=== PATIENT | female | born 1935 | race Caucasian/White ===

== ENCOUNTER 2016-07-08 09:24 | Inpatient (IN) | payer MEDICARE ==
[~2016-07-08] VITALS: Ht 157.5 cm; Wt 60.8 kg
[2016-07-08 10:40] LABS: HEMOGLOBIN 14.7 gm/dl (12.3-15.3); RED BLOOD COUNT 4.83 M/UL (4.00-5.10); WHITE BLOOD COUNT 7.8 K/UL (4.5-11.0)
[2016-07-08 10:57] LABS: BUN/CREATININE RATIO 21 (0-10)
[2016-07-08] MEDS ORDERED: KLONOPIN TAB 00.5 MG PO (15:21)
[2016-07-08] MEDS ORDERED: PLAVIX 75 MG TA75 MG PO (15:21)
[2016-07-08] MEDS ORDERED: IMDUR ER TAB 3030 MG PO (15:22)
[2016-07-08] MEDS ORDERED: AMITIZA 24 MCG24 MCG PO (15:23)
[2016-07-08] MEDS ORDERED: ARICEPT10 MG PO (15:24)
[2016-07-08] MEDS ORDERED: CELEBREX200 MG PO (15:24)
[2016-07-08] MEDS ORDERED: NEURONTIN 300300 MG PO (15:25)
[2016-07-08] MEDS ORDERED: MECLIZINE HCL25 MG PO (15:26)
[2016-07-08] MEDS ORDERED: DITROPAN XL10 MG PO (15:26)
[2016-07-08] MEDS ORDERED: DILANTIN 100 M100 MG PO (15:28)
[2016-07-08] MEDS ORDERED: ZOLOFT50 MG PO (15:30)
[2016-07-08] MEDS ORDERED: ZOCOR 40 MG TAB40 MG PO (15:31)
[2016-07-09 05:57] LABS: HEMOGLOBIN 13.6 gm/dl (12.3-15.3); RED BLOOD COUNT 4.43 M/UL (4.00-5.10); WHITE BLOOD COUNT 6.7 K/UL (4.5-11.0)
[2016-07-09 06:17] LABS: BUN/CREATININE RATIO 20 (0-10)
[2016-07-11 05:26] LABS: HEMOGLOBIN 13.7 gm/dl (12.3-15.3); RED BLOOD COUNT 4.5 M/UL (4.00-5.10); WHITE BLOOD COUNT 7.2 K/UL (4.5-11.0)
[2016-07-13 06:08] LABS: BUN/CREATININE RATIO 26 (0-10)
--- NOTE | 2016-07-14 20:34 | NUR ---
1345 - PT NOTED TO HAVE WALKED OUT IN HALLWAY; SHE HAS RIPPED THE TUBING OFF OF HER WOUND VAC AND IS WALKING IN [place]; STATED TO STAFF THAT SHE WASN'T GOING BACK IN ROOM; THAT I AM LEAVING THIS PLACE! ASSURED PT THAT THERE WAS AN ORDER FOR HER TO BE DISCHARGED TO REHAB TODAY. PT STARTED CURSING AT STAFF AND NOTED WALKING UP AND DOWN HALLWAYS; ATTEMPS TO ASSIST PT BACK TO ROOM WITH 1-2 ASSIST WERE INEFFECTIVE. 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 NEW ORDERS NOTED AND FOLLOWED FROM DR. NAPIER. ALL OF ABOVE MADE AWARE TO
[2016-07-18 06:38] LABS: RED BLOOD COUNT 4.59 M/UL (4.00-5.10); WHITE BLOOD COUNT 10.1 K/UL (4.5-11.0)
--- NOTE | 2016-07-19 02:56 | NUR ---
07/18/162144 SPOKE WITH ALEXI FAJARDO AT [facility], MADE HIM AWARE OF NEED FOR AMBULANCE TRANSFER OF PATIENT TO FACILITY IN [place], [place]
== END 2016-07-18 23:41 | DRG 571 ==
LOC: ER1 09:24 → ZEROF 11:24 → M/S 11:24
PROVIDERS: Emergency Medicine; Family Medicine; Hospitalist; Physician Assistant; Surgery; ADMIT Internal Medicine
PROC: 3E0234Z Introduction of Serum, Toxoid and Vaccine into Muscle, Percutaneous Approach (ICD-10-PCS; 2016-07-08)
PROC: 0JBN0ZZ Excision of Right Lower Leg Subcutaneous Tissue and Fascia, Open Approach (ICD-10-PCS; principal; 2016-07-08 12:45)
DX: L02.415 Cutaneous abscess of right lower limb (principal); I96 Gangrene, not elsewhere classified; L03.115 Cellulitis of right lower limb; B95.62 Methicillin resistant Staphylococcus aureus infection as the cause of diseases classified elsewhere; M94.0 Chondrocostal junction syndrome [Tietze]; R07.89 Other chest pain; R00.1 Bradycardia, unspecified; I25.10 Atherosclerotic heart disease of native coronary artery without angina pectoris; G40.909 Epilepsy, unspecified, not intractable, without status epilepticus; I10 Essential (primary) hypertension; E78.5 Hyperlipidemia, unspecified; F03.90 Unspecified dementia, unspecified severity, without behavioral disturbance, psychotic disturbance, mood disturbance, and anxiety; G89.4 Chronic pain syndrome; G47.00 Insomnia, unspecified; W54.0XXA Bitten by dog, initial encounter; F41.9 Anxiety disorder, unspecified; I25.2 Old myocardial infarction; Z98.61 Coronary angioplasty status; Z23 Encounter for immunization; Z72.3 Lack of physical exercise; Z79.02 Long term (current) use of antithrombotics/antiplatelets; Z79.1 Long term (current) use of non-steroidal anti-inflammatories (NSAID); Z79.891 Long term (current) use of opiate analgesic; Z79.899 Other long term (current) drug therapy; Z88.5 Allergy status to narcotic agent; Z90.710 Acquired absence of both cervix and uterus; Z90.49 Acquired absence of other specified parts of digestive tract; Z98.890 Other specified postprocedural states; Z82.49 Family history of ischemic heart disease and other diseases of the circulatory system; Z80.3 Family history of malignant neoplasm of breast; Z83.3 Family history of diabetes mellitus
CPT/HCPCS: 36415; 73590; 80048; 80053; 80185; 80202; 82550; 82553; 83735; 84484; 85025; 85027; 86140; 87040; 87070; 87077; 87186; 87205; 90471; 90715; 93005; 96365; 99283; J1650; J2060; J2250; J2543; J2550; J3010; J3370; J7030; J7050; J7070; J7120; Q0162

== ENCOUNTER 2016-11-23 12:34 | Emergency (ER) | payer MEDICARE ==
[~2016-11-23 12:34] MED LIST: AMITIZA 24 MCG24 MCG PO; ARICEPT10 MG PO; CELEBREX200 MG PO; DILANTIN 100 M100 MG PO; DITROPAN XL10 MG PO; IMDUR ER TAB 3030 MG PO; KLONOPIN TAB 00.5 MG PO; MECLIZINE HCL25 MG PO; NEURONTIN 300300 MG PO; PLAVIX 75 MG TA75 MG PO; ZOCOR 40 MG TAB40 MG PO; ZOLOFT50 MG PO
[2016-11-23 13:55] LABS: HEMOGLOBIN 14.3 gm/dl (12.3-15.3); RED BLOOD COUNT 4.62 M/UL (4.00-5.10); WHITE BLOOD COUNT 6.8 K/UL (4.5-11.0)
[2016-11-23 14:19] LABS: BUN/CREATININE RATIO 22 (0-10)
== END 2016-11-23 15:00 ==
LOC: ER1 12:34
PROVIDERS: Family Medicine
DX: S06.5X0A Traumatic subdural hemorrhage without loss of consciousness, initial encounter (principal); S02.2XXA Fracture of nasal bones, initial encounter for closed fracture; F03.90 Unspecified dementia, unspecified severity, without behavioral disturbance, psychotic disturbance, mood disturbance, and anxiety; W19.XXXA Unspecified fall, initial encounter; Z88.5 Allergy status to narcotic agent
CPT/HCPCS: 36415; 70450; 70486; 72125; 80053; 80162; 81001; 82550; 82553; 83874; 84484; 85025; 93005; 99291